=== PATIENT | male | born 1970 | race Caucasian/White ===

== ENCOUNTER 2024-05-14 07:00 | Emergency (ER) | payer BC, SELFPAY ==
[2024-05-14 07:05] VITALS: BP 132/78
--- NOTE | 2024-05-14 07:28 | ED.GENMED ---
History of Present Illness
General
Chief Complaint: Abdominal Symptoms
Source: patient
Time Seen by Provider: 05/14/24 07:17
History of Present Illness
History of Present Illness:
53-year-old male with past medical history of peptic ulcer disease, currently on Wegovy for weight loss for the last year, presents to the emergency department for evaluation of left flank pain that began with severe onset about an hour and a half
prior to arrival but does note last night he felt as if he had abnormal pressure while attempting to urinate. This morning while waiting in the waiting room he states he had a sudden onset of significant nausea but has not had any vomitus. Denies
any history of similar symptoms. Denies any focal testicular pain or edema/erythema. Denies any fevers, chills, rigors. No changes to Wegovy or any other recent medications. Patient did attempt Pepto with no relief.
Past History
Past History
ED Past Medical History: Other (Peptic ulcer disease)
ED Past Surgical History: Cholecystectomy
Social History
Tobacco: Non-smoker
Alcohol: Occasional
Drug: None
Personal:
Living: with family
Review of Systems
Review of Systems
All Other Systems: ROS reviewed and negative except as documented in HPI and ROS
Phy Exam
Physical Exam
Physical Exam:
GENERAL: Alert , pacing in room, appears uncomfortable
EYE: clear conjunctiva b/l
HEAD: NCAT
ENT: o/p clr, mmm.
CARDIAC: Regular rate and rhythm .
LUNGS: Clear breath sounds bilaterally, no acute respiratory distress, no wheezes/rales/rhonchi
ABDOMEN: Soft, without focal tenderness, no r/g, mild left CVA tenderness
GENITOURINARY: No testicular tenderness, erythema or edema, no urethral discharge or blood noted
NEUROLOGICAL: Alert and oriented
SKIN: Warm and dry, skin intact.
MUSCULOSKELETAL: well perfused.
PSYCH: Normal and appropriate interaction.
Scores
Heart Failure Risk
Heart Failure Risk Score: Not Applicable
Heart Score for Chest Pain Patients
STEMI patient?: Not applicable
Withdrawal Assessment of Alcohol
Withdrawal Assessment Completed?: Not applicable
Course
Orders/Labs/Results
Orders:
Orders
05/14/24 07:27
CT Abd/pel Without Iv Or Oral Urgent
Comment:
Reason For Exam: left flank pain/groin pain
0.9% Sodium Chloride 1000 ml [Nss] 1,000 ml IV BOLUS
Ketorolac [Toradol] 30 mg IV NOW STA
Ondansetron Injectable [Zofran] 4 mg IV NOW STA
05/14/24 07:42
Complete Blood Count/With Diff Urgent
Comprehensive Metabolic Panel Urgent
Lipase Urgent
05/14/24 09:38
Urinalysis Reflex To Culture Urgent
Date Specimen was Collected: 05/14/24
Time Specimen was Collected: 09:37
Urine Microscopic Reflex Cult Urgent
Abnormal Lab Results
05/14/24 05/14/24
07:42 09:38
RBC 4.41 L 10^6/uL
(4.70-6.10)
MCH 31.7 H pg
(27.0-31.0)
Immature Gran % 0.6 H %
(0-0.5)
Glucose 158 H mg/dl
(70-99)
Ur Occult Blood Reflex 4+ A
(Negative)
Urine RBC 16-20 A /HPF
(0-2)
Urine Bacteria (Reflex) Few A
(Negative)
Urine Albumin (Reflex) 1+ A
(Neg - Trace)
05/14/24 07:42
05/14/24 07:42
Vital Signs
Initial and Last Documented VS:
Initial Vital Signs
Temp Pulse Resp BP Pulse Ox
98.2 F 78 16 132/78 98
05/14/24 07:05 05/14/24 07:05 05/14/24 07:05 05/14/24 07:05 05/14/24 07:05
Last Documented Vital Signs
Temp Pulse Resp BP Pulse Ox
98.2 F 54 18 129/81 100
05/14/24 07:05 05/14/24 09:15 05/14/24 09:15 05/14/24 09:00 05/14/24 09:15
MDM/Problems Addressed
Differential Diagnosis Includes:
Renal/ureteral colic, urinary tract infection/pyelonephritis, pancreatitis, recurring peptic ulcer disease, GERD/gastritis
MDM/Problems Addressed:
53-year-old male presenting the ER for evaluation of sudden onset severe left flank pain that began today about an hour and a half prior to arrival, last night stated he did feel as if he had a abnormal pressure while urinating. Based off
presentation I am most suspicious for renal/ureteral colic. Will treat with Toradol Zofran and fluids. Labs and CT scan ordered. Disposition pending
*Radiology
Radiology exam reviewed: radiology read reviewed
*Pulse Oximetry
Patient hypoxic: no
*Critical Care Note
Total Time (30-74mins, 75-104mins- exclusive of procedures): Not Applicable
Patient Management
Escalation/DeEscalation of care consider admission/obs:
On multiple reevaluations patient is noting significant relief of pain and feels quite well at this time. CT scan shows a distal left ureteral stone measuring 2 mm. Patient does feel comfortable being discharged home. Will treat with naproxen,
Flomax, and Zofran. Information for urology provided. Patient aware of return precautions to the ER.
ED Attending Note
-
Portions of this chart may have been created with voice recognition software.� Occasional wrong word or��sound alike� substitutions may have occurred due to the inherent limitations of voice recognition software.
Discharge Plan
Departure
Patient Disposition: Home (Routine Discharge)
Date of Disposition: 05/14/24
Time of Disposition: 09:32
Patient with high blood pressure during this ER visit?: No
Discharge Problem:
Ureterolithiasis
Instructions: Kidney stones in adults - ED discharge instructions
Prescriptions:
New
ondansetron 4 mg tablet,disintegrating
4 mg PO TIDPRN PRN (Reason: nausea/vomiting) Qty: 10 0RF
tamsulosin [Flomax] 0.4 mg capsule
0.4 mg PO DAILY Qty: 10 0RF
naproxen 500 mg tablet
500 mg PO BID PRN (Reason: Pain) Qty: 15 0RF
oxycodone-acetaminophen [Percocet] 5-325 mg tablet
1 tab PO Q6HPRN PRN (Reason: pain) Qty: 8 0RF
Referrals:
Kwesi Cannon PA-C [Family Provider] -
Saturnino Stephenson Jr., MD [Active] - (Urology - Call for appointment)
Interventions
Interventions:
*Risk Screen - Suicide Last Done: 05/14/24 07:05
*General Assessment Last Done: 05/14/24 07:31
*Neglect/Abuse Screening Last Done: 05/14/24 07:05
*ED- Fall Risk Assessment Last Done: 05/14/24 07:31
*ED COVID-19 Vaccine History Last Done: 05/14/24 07:31
*Nursing Disposition Last Done: 05/14/24 10:32
KV-Swuopb-Stdssaylzl Assessment Last Done: 05/14/24 07:31
Discharge Date and Time
Discharge Date/Time: 05/14/24 10:33
Print Language: [id number]
[2024-05-14] MEDS: NSS 1000 IV (07:40)
[2024-05-14] MEDS: ZOFRAN 4 MG IV (07:41)
[2024-05-14] MEDS: TORADOL 30 MG IV (07:41)
[2024-05-14 07:56] LABS: % Basophils 0.7 % (0-2); % Eosinophils 2.8 % (0-6); % Immature Granulocytes 0.6 % (0-0.5); % Lymphocytes 43.6 % (20.5-51.1); % Monocytes 6.9 % (1.7-9.3); % Neutrophils 45.4 % (42.2-75.2); Absolute Basophils 0.1 10^3/uL (0-0.2); Absolute Eosinophils 0.2 10^3/uL (0-0.7); Absolute Lymphocytes 2.9 10^3/uL (1.2-3.4); Absolute Monocytes 0.5 10^3/uL (0.1-0.6); Hematocrit 40.6 % (39.0-52.0); Mean Corp Hgb Conc. 34.5 g/dL (33.0-37.0); Mean Corpuscular Hgb 31.7 pg (27.0-31.0); Mean Corpuscular Volume 92.1 fL (80.0-94.0); Mean Platelet Volume 9.5 fL (7.4-10.4); Nucleated Red Blood Cells % 0 % (-); Platelet Count 212 10^3/uL (130-400); Red Blood Cell Count 4.41 10^6/uL (4.70-6.10); Red Cell Dist. Width 13.2 % (11.5-14.5); White Blood Cell Count 6.7 10^3/uL (4.8-10.8)
[2024-05-14 08:04] LABS: ALT (SGPT) 32 U/L (0-50); AST (SGOT) 26 U/L (17-59); Albumin 4.6 g/dl (3.5-5.0); Alkaline Phosphatase 49 U/L (38-126); Blood Urea Nitrogen 18 mg/dl (9-20); Calcium 9.4 mg/dl (8.4-10.2); Carbon Dioxide 28 mmol/L (22-30); Chloride 106 mmol/L (98-107); Glucose 158 mg/dl (70-99); Lipase 114 U/L (23-300); Potassium 4.2 mmol/L (3.5-5.1); Sodium 143 mmol/L (135-145); Total Bilirubin 0.8 mg/dl (0.2-1.3); eGFR > 60.00
[2024-05-14 08:36] VITALS: BMI 25.9
[2024-05-14 08:39] VITALS: BP 124/76
[2024-05-14 09:00] VITALS: BP 129/81
[2024-05-14 10:07] LABS: Urine Albumin 1+ (Neg - Trace); Urine Bilirubin Negative (Negative); Urine Character Clear (Clear); Urine Color Yellow; Urine Glucose Negative (Negative); Urine Ketone Negative (Negative); Urine Leukocyte Negative (Negative); Urine Nitrite Negative (Negative); Urine Occult Blood 4+ (Negative); Urine Specific Gravity 1.025 (<1.030); Urine Urobilinogen Negative (Neg - 1+)
[2024-05-14 10:15] LABS: Urine Mucus Many
[2024-05-14 10:17] LABS: Urine Bacteria Few (Negative); Urine Red Blood Cell 16-20 /HPF (0-2)
== END 2024-05-14 10:33 | disposition home or self-care (01) ==
LOC: EMR 07:00
PROVIDERS: Physician Assistant Medical; EMERGENCY PHYSICIAN Emergency Medicine; FAMILY PHYSICIAN Physician Assistant Medical
DX: N20.2 Calculus of kidney with calculus of ureter (principal); Z87.11 Personal history of peptic ulcer disease; Z90.49 Acquired absence of other specified parts of digestive tract
CPT/HCPCS: 99284; 96374; 96375; 96361; 74176; 80053; 81003; 81015; 83690; 85025